=== PATIENT | male | born 1995 | race Caucasian/White ===

== ENCOUNTER 2025-07-11 07:24 | Observation (INO) | payer SELFPAY ==
[2025-07-11 09:00] VITALS: BMI 28.4
[2025-07-11] MEDS ORDERED: Calcium Carbonate 500 MG ChewTAB PO PRN (09:34)
[2025-07-11] MEDS ORDERED: Senokot S 8.6-50 MG TAB PO PRN (09:34)
[2025-07-11] MEDS ORDERED: Ondansetron PF 4 MG/2 ML Vial IVP PRN (09:34)
[2025-07-11] MEDS ORDERED: Acetaminophen 325 MG TAB PO PRN (09:34)
[2025-07-11] MEDS ORDERED: Iopamidol 370 76% 100 ML VIAL ONE (10:06)
[2025-07-11 10:37] LABS: Troponin I 0.062 ng/mL (< 0.028)
[2025-07-11 12:59] LABS: Magnesium 2.0 mg/dL (1.6-2.6)
[2025-07-11 13:13] LABS: Free T4 (Free Thyroxine) 0.99 ng/dL (0.70-1.48); Thyroid Stimulating Hormone 1.2393 uIU/mL (0.35-4.94)
[2025-07-12 05:25] LABS: #Basophils 0.03 10x3/uL (0.0-0.2); #Eosinophils 0.07 10x3/uL (0.0-0.5); #Monocytes 0.42 10x3/uL (0.0-1.1); #Neutrophils 2.89 10x3/uL (1.5-8.4); %Basophils 0.6 % (0.0-2.0); %Eosinophils 1.3 % (0.0-6.0); %Lymphocytes 35.7 % (18.0-47.0); %Monocytes 7.9 % (0.0-10.0); %Neutrophils 54.3 % (40.0-75.0); Hematocrit 44.1 % (38.8-50.0); Hemoglobin 14.4 g/dL (13.5-17.5); Mean Corpuscular Hemoglobin 30.3 pg (27.0-33.0); Mean Corpuscular Volume 92.8 fL (81.2-95.1); Platelet Count 169 10x3/uL (150-450); Red Blood Cell (RBC) Count 4.75 10x6/uL (4.32-5.72); White Blood Cell (WBC) Count 5.32 10x3/uL (3.5-10.5)
[2025-07-12 05:40] LABS: ALT (SGPT) 43 U/L (Less than 45); AST (SGOT) 68 U/L (11-34); Albumin 4.2 g/dL (3.1-4.5); Alkaline Phosphatase 71 U/L (40-110); Anion Gap 13 mmol/L (10-20); BUN (Urea Nitrogen) 6 mg/dL (8.9-20.6); Bilirubin, Total 1.3 mg/dL (0.3-1.2); Calc. Creatinine Clearance 407 mL/min (70-130); Calcium 9.1 mg/dL (7.8-10.44); Carbon Dioxide 26 mmol/L (22-29); Cardiac Risk 3.7 (Less than 4.5); Chloride 106 mmol/L (98-107); Cholesterol 115 mg/dl (< 200 Desired); Globulin 2.6 g/dL (2.4-3.5); Glucose 94 mg/dL (70-105); HDL Cholesterol 31 mg/dL (>60 Neg Risk); LDL Cholesterol, Calculated 66 mg/dL; Potassium 4.5 mmol/L (3.5-5.1); Sodium 140 mmol/L (136-145); Triglycerides 91 mg/dL (Less than 150)
[2025-07-12] MEDS: Lisinopril 10 MG TAB PO SCH (09:07)
[2025-07-12] MEDS: Metoprolol Succinate XL 50 MG ER.TAB PO SCH (09:07)
[2025-07-12] MEDS: Aspirin Chewable 81 MG TAB PO SCH (09:07)
[2025-07-12] MEDS: Enoxaparin 40 MG (0.4 mL) SYRINGE SC SCH (09:07)
[2025-07-12 16:32] VITALS: BP 130/75; TEMP 98.8
== END 2025-07-12 16:39 | disposition home or self-care (01) ==
LOC: CSHTELE 08:42
PROVIDERS: ADMIT Internal Medicine; ATTEND Family Medicine
PROC: B245ZZ4 Ultrasonography of Left Heart, Transesophageal (ICD-10-PCS; principal; 2025-07-11)
DX: R07.89 Other chest pain (principal); I10 Essential (primary) hypertension; E78.5 Hyperlipidemia, unspecified; G71.00 Muscular dystrophy, unspecified; Z79.899 Other long term (current) drug therapy
CPT/HCPCS: 36415; 71275; 80053; 80061; 83036; 83735; 84439; 84443; 85025; 93005; 93010; 93306; 93970; 94760; 96372; G0378; J1650; J7030; Q9967

== ENCOUNTER 2025-08-01 22:56 | Emergency (ER) | payer SELFPAY ==
[2025-08-01] MEDS ORDERED: Ketorolac Tromethamine 30 MG (1 mL) VIAL ONE (23:56)
[2025-08-02 00:04] LABS: #Basophils 0.03 10x3/uL (0.0-0.2); #Eosinophils 0.10 10x3/uL (0.0-0.5); #Monocytes 0.41 10x3/uL (0.0-1.1); #Neutrophils 3.20 10x3/uL (1.5-8.4); %Basophils 0.5 % (0.0-2.0); %Eosinophils 1.7 % (0.0-6.0); %Lymphocytes 37.5 % (18.0-47.0); %Monocytes 6.8 % (0.0-10.0); %Neutrophils 53.3 % (40.0-75.0); Hematocrit 46.8 % (38.8-50.0); Hemoglobin 15.2 g/dL (13.5-17.5); Mean Corpuscular Hemoglobin 29.6 pg (27.0-33.0); Mean Corpuscular Volume 91.1 fL (81.2-95.1); Platelet Count 202 10x3/uL (150-450); Red Blood Cell (RBC) Count 5.14 10x6/uL (4.32-5.72); White Blood Cell (WBC) Count 6.00 10x3/uL (3.5-10.5)
[2025-08-02 00:21] LABS: ALT (SGPT) 38 U/L (Less than 45); AST (SGOT) 46 U/L (11-34); Albumin 4.7 g/dL (3.1-4.5); Alkaline Phosphatase 76 U/L (40-110); Anion Gap 18 mmol/L (10-20); BUN (Urea Nitrogen) 6 mg/dL (8.9-20.6); Bilirubin, Total 0.9 mg/dL (0.3-1.2); Calc. Creatinine Clearance 0 mL/min (70-130); Calcium 9.7 mg/dL (7.8-10.44); Carbon Dioxide 22 mmol/L (22-29); Chloride 104 mmol/L (98-107); Globulin 3.3 g/dL (2.4-3.5); Glucose 85 mg/dL (70-105); Potassium 3.9 mmol/L (3.5-5.1); Sodium 140 mmol/L (136-145)
[2025-08-02 02:28] LABS: Glucose, Urine (Dipstick) Normal (Negative); Leukocyte Negative (Negative); Protein, Urine (Dipstick) Negative (Neg-Trace); Specific Gravity, Urine 1.010 (1.005-1.030)
[2025-08-02 02:41] LABS: Bacteria/HPF Rare-Few HPF (None Seen); CAUTI Indications for Culture Fever or rigors; RBC/HPF 0-3 HPF (0-3); WBC/HPF 0-3 HPF (0-3)
[2025-08-02 02:42] LABS: Urine Culture Reflex No No
== END 2025-08-02 03:13 | disposition home or self-care (01) ==
LOC: CSHERS 22:56
DX: R50.9 Fever, unspecified (principal); I10 Essential (primary) hypertension; Z79.899 Other long term (current) drug therapy
CPT/HCPCS: 71045; 80053; 81001; 85025; 87081; 87428; 87430; 96374; J1885